=== PATIENT | female | born 1970 | race Caucasian/White ===

== ENCOUNTER 2017-11-24 15:52 | Emergency (ER) | payer OTHER ==
[~2017-11-24] VITALS: Ht 157.5 cm; Wt 88.5 kg
[2017-11-24 16:32] VITALS: BP 124/81
[2017-11-24] MEDS ORDERED: LIDOCAINE VISCOUS 2% 15ML UD MT ONE (17:30)
== END 2017-11-24 17:49 | disposition home or self-care (01) ==
LOC: ER 15:52
DX: H66.91 Otitis media, unspecified, right ear (principal); J01.20 Acute ethmoidal sinusitis, unspecified; Z90.710 Acquired absence of both cervix and uterus